=== PATIENT | female | born 1935 | race Caucasian/White ===

== ENCOUNTER 2018-11-02 13:41 | Observation (INO) | payer MEDICARE, OTHER ==
[2018-11-02 13:51] LABS: ADD MAN DIFF? NO
[2018-11-02 13:55] LABS: BASOPHIL # 0.1 10^3/ul (0.0-0.1); BASOPHILS % 0.8 % (0.0-2.0); EOSINOPHILS # 0.4 10^3/ul (0.0-0.5); EOSINOPHILS % 4.5 % (0.0-7.0); HEMATOCRIT 34.5 % (37.0-47.0); HEMOGLOBIN 10.3 g/dl (12.0-16.0); LYMPHOCYTES # 3.9 10^3/ul (0.8-2.9); LYMPHOCYTES % 50.3 % (15.0-51.0); MEAN CORPUSCULAR HEMOGLOBIN 20.9 pg (29.0-33.0); MEAN CORPUSCULAR HGB CONC 29.9 g/dl (32.0-37.0); MEAN PLATELET VOLUME 9.6 fl (7.4-10.4); MONOCYTE # 0.7 10^3/ul (0.3-0.9); MONOCYTES % 8.5 % (0.0-11.0); NEUTROPHIL # 2.8 10^3/ul (1.6-7.5); NEUTROPHILS % 35.6 % (39.0-77.0); PLATELET COUNT 319 10^3/UL (140-415); RED BLOOD COUNT 4.93 10^6/ul (4.20-5.40); RED CELL DISTRIBUTION WIDTH 16.7 % (11.5-14.5)
[2018-11-02 13:55] LABS: WHITE BLOOD COUNT 7.8 10^3/ul (4.8-10.8)
[2018-11-02] MEDS ORDERED: LIDOCAINE 1% (MDV) 20 ML INJ ×2 (14:02→14:41)
[2018-11-02] MEDS ORDERED: MIDAZOLAM 1 MG/ML 2 ML INJ (14:02)
[2018-11-02] MEDS ORDERED: IODIXANOL LOCM 100 ML BTL (14:02)
[2018-11-02] MEDS ORDERED: HEPARIN 1000 UNITS/ML 10 ML INJ (14:02)
[2018-11-02] MEDS ORDERED: VERAPAMIL 5 MG INJ (14:03)
[2018-11-02] MEDS ORDERED: FENTAnyl 50 MCG/ML VIAL (14:03)
[2018-11-02] MEDS: SOD CHLORIDE 0.9% 1,000 ML IV ×2 (14:08→20:37)
[2018-11-02] MEDS: ASPIRIN 81 MG TAB PO (14:10)
[2018-11-02] MEDS: HEPARIN 1000 UNITS/ML 10 ML INJ IV (14:10)
[2018-11-02 14:16] LABS: INR 0.92; PROTIME 12.5 Sec (11.9-14.9)
[2018-11-02 14:20] LABS: ANION GAP 10 (5-13); BLOOD UREA NITROGEN 46 mg/dl (7-20); CALCIUM 8.9 mg/dl (8.4-10.2); CARBON DIOXIDE 22 mmol/L (21-31); CHLORIDE 108 mmol/L (97-110); CREATININE 1.54 mg/dl (0.44-1.00); GLUCOSE 121 mg/dl (70-220); POTASSIUM 4.1 mmol/L (3.5-5.1); SODIUM 140 mmol/L (135-144)
[2018-11-02 14:25] LABS: PARTIAL THROMBOPLASTIN TIME 28.4 Sec (23.0-35.0)
[2018-11-02 14:32] LABS: TROPONIN-I < 0.012 ng/ml (0.000-0.120)
[2018-11-02] MEDS ORDERED: SOD CHLORIDE 0.9% 500 ML (14:41)
[2018-11-02] MEDS ORDERED: NITROGLYCERIN (IC) 100 MCG/ML INJ (14:41)
[2018-11-02] MEDS ORDERED: IOHEXOL 350MG/ML 50 ML BTL (14:45)
[2018-11-02] MEDS ORDERED: ONDANSETRON 4 MG INJ IV (15:30)
[2018-11-02] MEDS ORDERED: AL HYDROX/MG HYDROX/SIMETH 30 ML CUP PO (15:30)
[2018-11-02] MEDS ORDERED: OXYCODONE/ACETAMINOPHEN (5/325) TAB PO ×2 (15:30→17:00)
[2018-11-02] MEDS ORDERED: ZOLPIDEM 5 MG TAB PO ×2 (15:30→17:00)
[2018-11-02] MEDS ORDERED: ACETAMINOPHEN 325 MG TAB PO (15:30)
[2018-11-02] MEDS ORDERED: HYDROCODONE/APAP (5/325) TAB PO (16:30)
[2018-11-02] MEDS ORDERED: NACL 0.9% 3 ML SYG IV (16:30)
[2018-11-02] MEDS: ATORVASTATIN 20 MG TAB PO (20:37)
[2018-11-02] MEDS: FERROUS SULFATE (EC) 325 MG TAB PO (20:37)
[2018-11-03 08:19] LABS: ADD MAN DIFF? NO
[2018-11-03 08:26] LABS: WHITE BLOOD COUNT 7.4 10^3/ul (4.8-10.8)
[2018-11-03 08:27] LABS: BASOPHILS % 0.4 % (0.0-2.0); EOSINOPHILS # 0.2 10^3/ul (0.0-0.5); EOSINOPHILS % 2.6 % (0.0-7.0); HEMATOCRIT 34.3 % (37.0-47.0); HEMOGLOBIN 10.2 g/dl (12.0-16.0); LYMPHOCYTES # 1.9 10^3/ul (0.8-2.9); LYMPHOCYTES % 26.2 % (15.0-51.0); MEAN CORPUSCULAR HEMOGLOBIN 20.9 pg (29.0-33.0); MEAN CORPUSCULAR HGB CONC 29.7 g/dl (32.0-37.0); MEAN CORPUSCULAR VOLUME 70.1 fl (82.0-101.0); MEAN PLATELET VOLUME 10.1 fl (7.4-10.4); MONOCYTE # 0.6 10^3/ul (0.3-0.9); MONOCYTES % 8.3 % (0.0-11.0); NEUTROPHIL # 4.6 10^3/ul (1.6-7.5); NEUTROPHILS % 62.2 % (39.0-77.0); PLATELET COUNT 335 10^3/UL (140-415); RED BLOOD COUNT 4.89 10^6/ul (4.20-5.40); RED CELL DISTRIBUTION WIDTH 16.7 % (11.5-14.5)
[2018-11-03 08:43] LABS: CHOLESTEROL 188 mg/dl (100-200); HDL CHOLESTEROL 46 mg/dl (33-92); LDL CHOLESTEROL,CALCULATED 118 mg/dl; MAGNESIUM 2.3 mg/dl (1.7-2.5); TRIGLYCERIDES 119 mg/dl (0-149)
[2018-11-03 08:43] LABS: PHOSPHORUS 3.7 mg/dl (2.5-4.9)
[2018-11-03 08:44] LABS: ANION GAP 8 (5-13); BLOOD UREA NITROGEN 30 mg/dl (7-20); CALCIUM 9.2 mg/dl (8.4-10.2); CARBON DIOXIDE 25 mmol/L (21-31); CHLORIDE 107 mmol/L (97-110); CREATININE 1.24 mg/dl (0.44-1.00); GLUCOSE 101 mg/dl (70-220); POTASSIUM 4.7 mmol/L (3.5-5.1); SODIUM 140 mmol/L (135-144)
[2018-11-03] MEDS: FEBUXOSTAT 40 MG TABLET PO (08:50)
[2018-11-03] MEDS: FOLIC ACID 1 MG TAB PO (08:50)
[2018-11-03] MEDS: FERROUS SULFATE (EC) 325 MG TAB PO ×2 (08:51→20:19)
[2018-11-03] MEDS: DONEPEZIL 10 MG TAB PO (08:51)
[2018-11-03] MEDS: AMLODIPINE 10 MG TAB PO (08:51)
[2018-11-03] MEDS: ASPIRIN (EC) 81 MG TAB PO (08:51)
[2018-11-03] MEDS: BUPROPION (XL) 150 MG TAB PO (08:51)
[2018-11-03 09:52] LABS: HEMOGLOBIN A1C 5.9 % (0-5.9)
[2018-11-03] MEDS: ATORVASTATIN 20 MG TAB PO (20:19)
[2018-11-04] MEDS: AMLODIPINE 10 MG TAB PO (08:35)
[2018-11-04] MEDS: BUPROPION (XL) 150 MG TAB PO (08:35)
[2018-11-04] MEDS: DONEPEZIL 10 MG TAB PO (08:36)
[2018-11-04] MEDS: ASPIRIN (EC) 81 MG TAB PO (08:36)
[2018-11-04] MEDS: FEBUXOSTAT 40 MG TABLET PO (08:36)
[2018-11-04] MEDS: FOLIC ACID 1 MG TAB PO (08:36)
[2018-11-04] MEDS: FERROUS SULFATE (EC) 325 MG TAB PO (08:38)
[2018-11-04 14:57] LABS: URIC ACID 4.3 mg/dl (3.1-7.9)
== END 2018-11-04 19:36 | disposition home or self-care (01) ==
LOC: TEL 14:17 → E/R 13:41 → CCL 14:13 → SDS 14:13 → CCL 15:39 → REC 15:39 → TEL 19:40
PROVIDERS: Internal Medicine
DX: I25.10 Atherosclerotic heart disease of native coronary artery without angina pectoris (principal); I10 Essential (primary) hypertension; N17.9 Acute kidney failure, unspecified; E78.5 Hyperlipidemia, unspecified; R55 Syncope and collapse; D50.9 Iron deficiency anemia, unspecified; G47.00 Insomnia, unspecified; R73.03 Prediabetes; Z79.82 Long term (current) use of aspirin
CPT/HCPCS: 36415; 70450; 71045; 80048; 80061; 82962; 83036; 83735; 84100; 84484; 84560; 85025; 85610; 85730; 93005; 93306; 93458; 93880; 96361; 96374; 97161; 99285-25; G0378